=== PATIENT | male | born 1985 | race Caucasian/White ===

== ENCOUNTER 2019-04-15 21:22 | Emergency (ER) | payer OTHER ==
[2019-04-15 21:28] VITALS: RESP 18
[2019-04-15] MEDS ORDERED: ASPIRIN 81 MG PO STA (21:35)
--- NOTE | 2019-04-15 22:13 | ED ---
Chest Pain HPI - General Chief Complaint: Chest Pain Stated Complaint: chest pain Time Seen by Provider: 04/15/19 21:32 Source: patient, EMS Mode of arrival: EMS - History of Present Illness Initial Comments: Audie is a 34-year-old male with past medical history significant for polysubstance abuse who presents the emergency department today via EMS from [facility] facility for evaluation of chest pain. Patient reports that he is on his day at [facility] for detox from benzodiazepines, alcohol and narcotics. Patient reports that this evening he was sitting in his room on his bed when he felt a sharp stabbing pain in his left upper chest just below his collarbone. Patient reports he then felt that his hands and face began going numb. He was evaluated by the nurse and found to have tachycardia and elevated blood pressure which time it was decided with transfer the patient hospital for further evaluation. EMS was contacted and upon their arrival martin ent's chest pain had resolved he still felt some tingling in his hands and face. Patient has no history of heart disease, no significant family history of coronary artery disease in young people. He does believe his grandfather had a bypass older in age. Patient denies any cocaine or amphetamine use in the past 2 weeks. - Related Data Home Medications Medication Instructions Recorded Confirmed Acetaminophen [Tylenol Arthritis] 650 mg PO Q4H 04/15/19 04/15/19 Calcium/Magnesium/Zinc 1 tab PO TID PRN 04/15/19 04/15/19 [[id number]-[id number]-[id number] Tablet] Cyproheptadine [Cyproheptadine HCl] 4 mg PO Q4H PRN 04/15/19 04/15/19 Hyoscyamine Sulfate [Levsin] 0.125 mg PO QID PRN 04/15/19 04/15/19 Ibuprofen [Motrin] 600 mg PO Q6HR PRN 04/15/19 04/15/19 Loperamide [Imodium] 4 mg PO QID PRN 04/15/19 04/15/19 Multivitamins, Thera [Multivitamin 1 tab PO DAILY 04/15/19 04/15/19 (formulary)] Ondansetron HCl [Zofran] 8 mg PO Q6H PRN 04/15/19 04/15/19 Trimethobenzamide HCl [Tigan] 300 mg PO Q6H PRN 04/15/19 04/15/19 cloNIDine HCL [Catapres] 0.1 mg PO Q4H 04/15/19 04/15/19 traZODone HCL [TraZODone HCl] 1 - 3 tab PO HS 04/15/19 04/15/19 Allergies Allergy/AdvReac Type Severity Reaction Status Date / Time No Known Allergies Allergy Unverified 04/15/19 21:50 Review of Systems ROS Statement: Those systems with pertinent positive or pertinent negative responses have been documented in the HPI. ROS Other: All systems not noted in ROS Statement are negative. EKG Findings - EKG Comments: EKG Findings:: EKG was obtained due to complaint of chest pain, EKG was obtained at 2136, rate is 77 rhythm is sinus there is normal axis there are normal intervals, DC 194, QRS 98, QTC 448, there are no acute ST elevations or depressions there is no evidence of acute ischemia or infarction. Past Medical History Past Medical History: No Reported History History of Any Multi-Drug Resistant Organisms: None Reported Past Surgical History: No Surgical Hx Reported Past Psychological History: ADD/ADHD, Anxiety, Depression Smoking Status: Former smoker Past Alcohol Use History: Occasional Past Drug Use History: Opiates General Exam - General Exam Comments Initial Comments: Physical Exam GENERAL: Patient is well-developed and well-nourished. Patient is nontoxic and well- hydrated and is in no distress. HENT: Normocephalic, Atraumatic. EYES: PERRL, EOMI PULMONARY: Unlabored respirations. No audible rales rhonchi or wheezing was noted. CARDIOVASCULAR: There is a regular rate and rhythm without any murmurs gallops or rubs. ABDOMEN: Soft and nontender with normal bowel sounds. SKIN: Scars and bilateral antecubital fossae chem consistent with history of IV drug abuse : Deferred NEUROLOGIC: Patient is alert and oriented x3. Moving all extremities spontaneously MUSCULOSKELETAL: Normal extremities with adequate strength and full range of motion. No lower extremity swelling or edema. No calf tenderness. PSYCHIATRIC: Normal psychiatric evaluation Course Vital Signs 04/15/19 04/15/19 04/15/19 21:23 21:29 23:47 Temperature 99.0 F 98 F Pulse Rate 75 64 Pulse Rate [ 75 Bilateral [employer]er ] Respiratory 18 18 Rate Blood Pressure 144/90 134/87 O2 Sat by Pulse 96 100 Oximetry 04/16/19 01:18 Temperature 98 F Pulse Rate 66 Pulse Rate [ Bilateral [employer]er ] Respiratory 18 Rate Blood Pressure 130/83 O2 Sat by Pulse 100 Oximetry Chest Pain [facility] - [facility]DM The patient was seen and evaluated history was obtained from the patient and EMS A pleasant 34-year-old man presenting after a brief episode of chest pain - patient was concerned because he was noted to be hypertensive and tachycardic at rehab facility & Upon arrival the patient is only mildly hypertensive with a systolic of 144, heart rate has normalized Patient only risk factors for cardiac disease is male gender and previous drug use though he has never been a frequent user of cocaine or amphetamines Physical exam is unremarkable Labs were within normal limits, EKG was nonischemic, chest x-ray unremarkable These results were discussed with the patient who expresses relief. Patient's blood pressure is 134/85 heart rate in the 80s. Patient's comfortable the plan to return to [facility] for continued rehab. Disposition Clinical Impression: Atypical chest pain Disposition: HOME SELF-CARE Condition: Stable Instructions (If sedation given, give patient instructions): Chest Pain (ED) Is patient prescribed a controlled substance at d/c from ED?: No Referrals: None,Stated [Primary Care Provider] - 1-2 days
[2019-04-15 22:15] LABS: Basophils % (A) 0 %; Eosinophils # (A) 0.3 k/uL (0-0.7); Eosinophils % (A) 5 %; HCT 42.6 % (39.0-53.0); HGB 13.7 gm/dL (13.0-17.5); Lymphocytes # (A) 2.4 k/uL (1.0-4.8); Lymphocytes % (A) 38 %; MCH 30.9 pg (25.0-35.0); MCHC 32.2 g/dL (31.0-37.0); MCV 96.1 fL (80.0-100.0); Mean Platelet Volume 6.9; Monocytes # (A) 0.4 k/uL (0-1.0); Monocytes % (A) 5 %; Neutrophils # (A) 3.1 k/uL (1.3-7.7); Neutrophils % (A) 48 %; Platelet Count 177 k/uL (150-450); RBC 4.43 m/uL (4.30-5.90); RDW 13.4 % (11.5-15.5); WBC 6.5 k/uL (3.8-10.6)
[2019-04-15 22:23] LABS: INR 1.1 (<1.2); Partial Thromboplastin Time 28.7 sec (22.0-30.0); Prothrombin Time 11.1 sec (9.0-12.0)
[2019-04-15 22:25] LABS: ALT 151 U/L (21-72); AST 141 U/L (17-59); African American GFR (CKD) >90 (>60 ml/min/1.73 sqM); Albumin 5.1 g/dL (3.5-5.0); Alkaline Phosphatase 102 U/L (38-126); Anion Gap 11 mmol/L; Blood Urea Nitrogen 17 mg/dL (9-20); Calcium 10.2 mg/dL (8.4-10.2); Carbon Dioxide 25 mmol/L (22-30); Chloride 105 mmol/L (98-107); Glucose 90 mg/dL (74-99); Magnesium 2.2 mg/dL (1.6-2.3); Potassium 4.3 mmol/L (3.5-5.1); Sodium 141 mmol/L (137-145); Total Protein 9.1 g/dL (6.3-8.2)
[2019-04-15 22:33] LABS: Amphetamine Screen,Urine Not Detected (NotDetected); Benzodiazepines Screen,Urine Detected (NotDetected); Cocaine Screen,Urine Not Detected (NotDetected); Opiate Screen,Urine Not Detected (NotDetected); Phencyclidine Screen,Urine Not Detected (NotDetected); Tricyclic Antidepressant,Urine Not Detected (NotDetected); Urn Cannabinoid Scrn Not Detected (NotDetected)
[2019-04-15 22:34] LABS: Barbiturate Screen,Urine Not Detected (NotDetected); Methadone Screen, Urine Detected (NotDetected); Oxycodone Screen, Urine Not Detected (NotDetected)
--- NOTE | 2019-04-15 22:49 | XR ---
EXAM: XR Chest, 2 Views CLINICAL HISTORY: ITS.REASON XR Reason: Chest Pain TECHNIQUE: Frontal and lateral views of the chest. COMPARISON: No relevant prior studies available. FINDINGS: Lungs: Mild basilar opacities, possible atelectasis. No consolidation. Pleural space: No significant pleural effusion or pneumothorax. Heart: Unremarkable. Mediastinum: Unremarkable. Bones/joints: No acute fracture. IMPRESSION: Mild basilar opacities, possible atelectasis. No consolidation.
[2019-04-15 23:49] VITALS: TEMP 98
[2019-04-16 01:19] VITALS: BP 130/83; PULSE 66
== END 2019-04-16 02:20 | disposition home or self-care (01) ==
LOC: EC 21:22
DX: R07.89 Other chest pain (principal); R00.0 Tachycardia, unspecified; R20.2 Paresthesia of skin; R03.0 Elevated blood-pressure reading, without diagnosis of hypertension; F41.9 Anxiety disorder, unspecified; F32.9 Major depressive disorder, single episode, unspecified; Z87.891 Personal history of nicotine dependence; Z79.899 Other long term (current) drug therapy
CPT/HCPCS: 36415; 71046; 80053; 80306; 83735; 84484; 85025; 85610; 85730; 93005; 99285